=== PATIENT | female | born 1980 | race Caucasian/White ===

== ENCOUNTER 2017-08-19 22:38 | Emergency (ER) | payer OTHER, MEDICAID ==
[~2017-08-19] VITALS: Ht 157.5 cm; Wt 73.0 kg
[2017-08-20 02:37] VITALS: BP 111/63
== END 2017-08-20 02:38 | disposition home or self-care (01) ==
LOC: M.ERS 22:38
DX: S43.084A Other dislocation of right shoulder joint, initial encounter (principal); X58.XXXA Exposure to other specified factors, initial encounter; Y93.89 Activity, other specified; Y92.89 Other specified places as the place of occurrence of the external cause; Y99.8 Other external cause status